=== PATIENT | male | born 1985 | race Hispanic/Latino ===

== ENCOUNTER 2019-12-10 10:40 | Emergency (ER) | payer OTHER, SELFPAY ==
--- NOTE | 2019-12-10 10:45 | ED.WOUNDLAC ---
HPI - Wound/Laceration General Chief Complaint: Wound/Laceration Stated Complaint: Laceration Left Foot Time Seen by Provider: 12/10/19 10:50 Source: patient and RN notes reviewed Mode of arrival: ambulatory Limitations: no limitations History of Present Illness HPI narrative: 34-year-old male presents with concern for laceration to his left leg. 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 He is not up-to-date on his tetanus vaccine. He denies any limited range of motion, limited sensation, limited strength in his leg, foot, digits of his foot. Related Data Home Medications Medication Instructions Recorded Confirmed cetirizine 10 mg PO DAILY 12/10/19 12/10/19 Allergies Allergy/AdvReac Type Severity Reaction Status Date / Time No Known Allergies Allergy Verified 12/10/19 11:00 Review of Systems Review of Systems: Narrative: CONSTITUTIONAL: Denies malaise, chills, sweats, or fever. CARDIOVASCULAR: Denies chest pain, palpitations RESPIRATORY: Denies dyspnea. SKIN: Reports laceration to his left thigh. MUSCULOSKELETAL: Denies limited range of motion, limited strength in left leg NEUROLOGIC: Denies numbness, weakness. All systems reviewed & are unremarkable except as noted in HPI and below PMFSH Comments At time of signature, agree with nursing past medical, surgical, social and family history. There is no relevant family history pertinent to the presenting complaint Exam Narrative: Exam Narrative: GENERAL: Well-appearing, well-nourished, and in no acute distress. HEAD: Normocephalic, atraumatic. EYES: PERRLA, conjunctivae clear NECK: Supple. CHEST: Speaks in full sentences. No respiratory distress. HEART: Regular rate and rhythm. Normal and equal peripheral pulses. EXTREMITIES: Left leg, left knee has normal strength and sensation, no edema, normal range of motion. 5/5 strength with knee flexion and extension. Normal sensation with sensitivity to light touch and pain. Distal pulses palpable and equal bilaterally, skin warm, dry, pink. Capillary refill less than 3 seconds. SKIN: Warm, dry, no rash. 5 cm irregular laceration into the subcutaneous tissue noted to the left posterior thigh above the knee, not involving the knee. NEURO: Alert and oriented x3. PSYCH: Normal mood and affect Course Course Emergency Course: Patient is aware of diagnosis, understands and agrees to treatment plan. Anticipatory guidance given. Patient agrees to follow-up as directed and is aware of reasons to seek care at the emergency department. Portions of this record may have been created with voice recognition software Vital Signs Vital signs: Vital Signs Temperature 98.7 F 12/10/19 11:01 Pulse Rate 64 12/10/19 11:01 Respiratory Rate 16 12/10/19 11:01 Blood Pressure 135/69 12/10/19 11:01 Pulse Oximetry 99 12/10/19 11:01 Temperature 98.7 F 12/10/19 11:01 Pulse Rate 64 12/10/19 11:01 Respiratory Rate 16 12/10/19 11:01 Blood Pressure 135/69 12/10/19 11:01 Pulse Oximetry 99 12/10/19 11:01 Reviewed. Pt has been instructed to follow up with his primary care provider within the next week regarding his elevated blood pressure today. Procedures Laceration Laceration 1: Date: 12/10/19 Time: 11:55 Site: lower extremity Side (If applicable): left Size (cm): 5 Description: irregular Depth: simple, single layer Local Anesthetic: lidocaine 1% Amount of anesthesia used (mL): 4 Pre-repair: wound explored and irrigated extensively ====== Skin Level ====== Skin layer closed with: other (Ethilon) Size (cm): 5-0 Number of sutures: 14 Technique: simple, interrupted ====== Subcutaneous Layer ====== ====== Muscle Layer ====== ====== Tendon Layer ====== MDM - Wound/Laceration MDM Narrative Medical decision making narrative: Wound explored for foreign
[2019-12-10 11:01] VITALS: BP 135/69; PULSE 64; RESP 16; TEMP 37.1; O2SAT 99
[2019-12-10] MEDS: TETANUS,DIPHTHERIA,AC PERTUSSIS ADULT 0.5 ML (ADACEL) IM (11:06)
--- NOTE | 2019-12-10 12:11 | PC.NURSE ---
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 MAY HAVE NOT REFLECTED THAT ON THE MARS.
== END 2019-12-10 12:03 | disposition home or self-care (01) ==
PROVIDERS: Emergency Provider Nurse Practitioner
DX: S71.112A Laceration without foreign body, left thigh, initial encounter (principal); W29.3XXA Contact with powered garden and outdoor hand tools and machinery, initial encounter; Z23 Encounter for immunization
CPT/HCPCS: 12002; 90471; 90715; 99212; G0463

== ENCOUNTER 2019-12-17 18:11 | Emergency (ER) | payer OTHER, SELFPAY ==
[2019-12-17 18:22] VITALS: BP 132/62; PULSE 71; RESP 16; TEMP 36.7; O2SAT 98
--- NOTE | 2019-12-17 19:12 | ED.WOUNDLAC ---
HPI - Wound/Laceration General Chief Complaint: Wound/Laceration Stated Complaint: laceration check History of Present Illness HPI narrative: This is a 34 year old that was here last week and had stitches placed in his left knee . Patient states that he had cut his leg with hedge cutters and he is here to have sutures removed Related Data Home Medications Medication Instructions Recorded Confirmed cetirizine 10 mg PO DAILY 12/10/19 12/10/19 Allergies Allergy/AdvReac Type Severity Reaction Status Date / Time No Known Allergies Allergy Verified 12/10/19 11:00 Review of Systems Review of Systems: Narrative: CONSTITUTIONAL: Denies fever, chills, or sweats. EYES: Denies visual changes, redness, or discharge. ENT: Denies rhinorrhea, congestion, sore throat, or otalgia. CARDIOVASCULAR:Denies chest pain, palpitations, or edema. RESPIRATORY: Denies cough or dyspnea. GASTROINTESTINAL: Denies abdominal pain, nausea, vomiting, or diarrhea. GENITOURINARY: Denies dysuria or hematuria. SKIN:[Denies rash or itching. stitches in left knee 14 MUSCULOSKELETAL:Denies back pain, joint pain, or myalgia. NEUROLOGIC: Denies headache, numbness, or weakness. PSYCHIATRIC:Denies anxiety or depression PMFSH Comments At time as signature, I have reviewed and agree with nursing past medical, social, surgical and family history. Please see nursing chart for further information. There is no relevant family history pertinent to the presenting complaint. Exam Narrative: Exam Narrative: GENERAL:Well-appearing, well-nourished, and in no acute distress. HEAD:Normocephalic, atraumatic. EYES: PERRLA and EOMI. ENT: Nares clear, no rhinorrhea or epistaxis. Mucous membranes moist. NECK: Supple. CHEST: Clear to auscultation. No respiratory distress. HEART: Regular rate and rhythm. No murmur heard. Normal peripheral pulses. ABDOMEN: Soft, nontender, nondistended, normal active bowel sounds. EXTREMITIES: Normal range of motion. No edema. SKIN: Warm, dry, no rash.left knee with stitches with some redness noted around area painful to touch well approximated. NEURO: No focal deficits. Alert and oriented x3. Course Vital Signs Vital signs: Vital Signs Temperature 98.1 F 12/17/19 18:22 Pulse Rate 71 12/17/19 18:22 Respiratory Rate 16 12/17/19 18:22 Blood Pressure 132/62 12/17/19 18:22 Pulse Oximetry 98 12/17/19 18:22 Temperature 98.1 F 12/17/19 18:22 Pulse Rate 71 12/17/19 18:22 Respiratory Rate 16 12/17/19 18:22 Blood Pressure 132/62 12/17/19 18:22 Pulse Oximetry 98 12/17/19 18:22 Procedures Laceration Laceration 1: Date: 12/17/19 Site: lower extremity Side (If applicable): left ====== Skin Level ====== ====== Subcutaneous Layer ====== ====== Muscle Layer ====== ====== Tendon Layer ====== Dressin sutures removed and area has some bleeding noted. Steri strips applied. Discharge Plan Discharge Clinical Impression: Encounter for removal of sutures Patient Disposition: Home, Self-Care Condition: Stable Instructions: Antibiotic Form, Stitches Removal (ED) Prescriptions: New cephalexin [Keflex] 500 mg capsule 500 mg PO Q12H 3 Days Qty: 6 RF: 0 No Action cetirizine 10 mg tablet 10 mg PO DAILY RF: 0 Follow-up/Referrals: UNKNOWN,DOCTOR [Primary Care Provider] - Stand Alone Forms: Work/School Release IP Time of Disposition: 19:13 Discharge Date/Time: 12/17/19 19:18
== END 2019-12-17 19:18 | disposition home or self-care (01) ==
PROVIDERS: Emergency Provider Nurse Practitioner Family
DX: S81.012D Laceration without foreign body, left knee, subsequent encounter (principal); W27.1XXD Contact with garden tool, subsequent encounter
CPT/HCPCS: 99213; G0463

== ENCOUNTER 2023-05-11 16:04 | Emergency (ER) | payer SELFPAY ==
[2023-05-11 16:18] VITALS: BP 127/71; PULSE 62; RESP 18; TEMP 36.7; O2SAT 99
--- NOTE | 2023-05-11 16:51 | ED.WOUNDLAC ---
HPI - Wound/Laceration General Chief Complaint: Wound/Laceration Stated Complaint: Stitches Removal Time Seen by Provider: 05/11/23 16:51 Source: patient Mode of arrival: ambulatory Limitations: no limitations History of Present Illness HPI narrative: 37 y/o male presented for suture removal. Reports 3 sutures placed about 13 days ago to the left eyebrow at outside hospital. States he was struck with a wrench while tightening a bolt at work. Denies complications. Related Data Home Medications Medication Instructions Recorded Confirmed No Home Medications 05/11/23 05/11/23 Allergies Allergy/AdvReac Type Severity Reaction Status Date / Time No Known Allergies Allergy Verified 05/11/23 16:17 Review of Systems Review of Systems: CONSTITUTIONAL: Denies body aches, fever, chills, or sweats. EYES: Denies visual changes, redness, or discharge. ENT: Denies rhinorrhea, congestion CARDIOVASCULAR: Denies chest pain, palpitations, or edema. RESPIRATORY: Denies cough or dyspnea. GASTROINTESTINAL: Denies abdominal pain, nausea, vomiting, or diarrhea. SKIN: per hPI MUSCULOSKELETAL: Denies back pain, joint pain, or myalgia. NEUROLOGIC: Denies headache, numbness, tingling, or weakness. [facility] Past Medical History Medical History (Updated 05/11/23 @ 17:02 by Lisbeth Garcia, YASMEEN) No pertinent past medical history Comments At time of signature, I have reviewed and agree with nursing past medical, surgical, social and family history unless otherwise noted. Please see nursing chart for further information. There is no relevant family history pertinent to the presenting complaint Exam Narrative: GENERAL: Well-appearing HEAD: Normocephalic, atraumatic. EYES: conjunctivae clear, and EOMI. ENT: Mucous membranes moist. Oropharynx without edema, erythema or lesions. NECK: Supple. No lymphadenopathy CHEST: Clear to auscultation. HEART: Regular rate and rhythm. SKIN: Warm, dry. 3 sutures left eyebrow. lac healing approx 1.cm. well approximated. NEURO: Alert and oriented x3. Course Course Emergency Course: Patient is aware of diagnosis, understands and agrees to treatment plan. Anticipatory guidance given. Patient agrees to follow-up as directed and is aware of reasons to seek care at the emergency department. Portions of this record may have been created with voice recognition software Level of Care: Express Care Visit Vital Signs Vital signs: Vital Signs Oxygen Delivery Room Air 05/11/23 16:03 Temperature 98.1 F 05/11/23 16:18 Pulse Rate 62 05/11/23 16:18 Respiratory Rate 18 05/11/23 16:18 Blood Pressure 127/71 05/11/23 16:18 Pulse Oximetry 99 05/11/23 16:18 Oxygen Delivery Room Air 05/11/23 16:18 Reviewed Procedures Other Procedure Procedure 1: Other Procedure: 3 sutures removed from left eyebrow without difficulty. Wound edges are approximated. No bleeding or signs of infection. Pt tolerated well. MDM - Wound/Laceration MDM Narrative Medical decision making narrative: Patient tolerated suture removal. Advised supportive measures and signs/symptoms to go to the ER. Pt is appropriate for outpt treatment and f/u. Differential Diagnosis Differential diagnosis: Likely laceration, abrasion and avulsion of skin Discharge Plan Discharge Clinical Impression: Encounter for removal of sutures Patient Disposition: Home, Self-Care Condition: Stable Instructions: Laceration (ED) Additional Instructions: Keep the area clean and dry - cleanse with warm water and mild soap and allow to fully dry. Ok to apply neosporin to the site Keep it open to air (no bandages) Watch for worsening symptoms including pain, redness, swelling, streaking, pus/drainage, fever. Go to the ER with any of these symptoms or concerns. Follow up with primary care provider in 1 week as needed. Prescriptions: No Action No Home Medications Follow-up/Re
== END 2023-05-11 17:05 | disposition home or self-care (01) ==
PROVIDERS: Emergency Provider Nurse Practitioner Family
DX: S01.112D Laceration without foreign body of left eyelid and periocular area, subsequent encounter (principal); W27.8XXD Contact with other nonpowered hand tool, subsequent encounter
CPT/HCPCS: 99211; G0463